=== PATIENT | male | born 1945 | race Caucasian/White ===

== ENCOUNTER 2024-07-31 07:22 | Emergency (ER) | payer MEDICARE, SELFPAY ==
[2024-07-31 07:29] VITALS: BP 176/78; PULSE 71; RESP 18; TEMP 36.6; O2SAT 95; BMI 28.5
[2024-07-31 07:33] VITALS: BP 176/78; PULSE 71; RESP 18; TEMP 36.6; O2SAT 95
--- NOTE | 2024-07-31 07:40 | XRR_ITS ---
PROCEDURE INFORMATION: Exam: XR Chest Exam date and time: 07/31/2024 7:46 AM Age: 78 years old Clinical indication: Dyspnea and shortness of breath; Prior surgery; Surgery date: 6+ months; Surgery type: Open heart; Additional info: Cough and congestion, rhonchi TECHNIQUE: Imaging protocol: Radiologic exam of the chest. Views: 2 views. COMPARISON: No relevant prior studies available. FINDINGS: Lungs: Pleural-parenchymal density in right lower lateral chest likely round atelectasis. Emphysematous changes. Pleural spaces: Right lower pleural-parenchymal density and pleural thickening. Small pleural effusion cannot be excluded. No pneumothorax. Heart/Mediastinum: Cardiomegaly. 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 Bones/joints: Median sternotomy. XR/XR chest 2V* [id number] IMPRESSION: Likely chronic round atelectasis and pleural-parenchymal changes in right lower lateral chest. Recommend follow-up.
--- NOTE | 2024-07-31 07:41 | ED_ITS ---
HPI - URI/Sore Throat General: Chief Complaint: Upper Respiratory Infection Stated Complaint: Congestion, Cough Time Seen by Provider: 07/31/24 07:32 Source: patient Mode of arrival: ambulatory Limitations: no limitations History of Present Illness: This patient presents to the emergency department because of cough and congestion for approximately last 4 to 5 days. He states that he is having nonproductive cough which wakes him at night. Uncertain if he has had any wheezing or not. He is uncertain if he has had fevers does not have a thermometer. He works for [employer] and is currently visiting this location on assignment. He states a coworker had some cough congestion a few days ago but he is unclear if how he is doing at this time. He denies any body aches. He states she has had decreased appetite but is no nausea or vomiting or diarrhea. No abdominal pain skin rashes etc. He is an ex-smoker but does admit to me yesterday he smoked a couple cigarettes when he drank a glass of wine. He denies any known coronary artery disease or chronic lung disease. He has had flu vaccine and has previously had COVID-19. MD elicited complaint: cough Consistency: intermittent Exacerbating factors: nothing Context: sick contacts and recent travel Associated symptoms: Reports congestion, cough and nasal congestion; Deny abdominal pain, chills, chest pain, diarrhea, fever(s), headache(s), nausea or vomiting Related Data Previous Rx's Medication Instructions Recorded albuterol sulfate 90 mcg/actuation 2 inh inhalation Q6H PRN shortness 07/31/24 aerosol inhaler of breath or wheezing #6.7 grams doxycycline hyclate 100 mg capsule 100 mg PO BID 7 days #14 caps 07/31/24 Allergies Allergy/AdvReac Type Severity Reaction Status Date / Time simvastatin Allergy ADR-Cough Verified 07/31/24 07:31 Review of Systems Const: Denies: fever(s), chills or body aches ENMT: Reports: nasal congestion; Denies: throat pain or odynophagia Card: Denies: chest pain, palpitations or orthopnea Resp: Reports: non-productive cough; Denies: dyspnea or hemoptysis GI: Denies: abdominal pain, nausea, vomiting or diarrhea : Denies: flank pain, difficulty urinating or dysuria Musc: Denies: neck pain, back pain, extremity pain or extremity swelling Skin/Breast: Denies: rash Neuro: Denies: headache(s), numbness in extremities or weakness in extremities Conner/Lymph: Denies: easy bruising or easy bleeding Physical Exam Narrative: EXAM NARRATIVE: He is alert having occasional episodes of coughing during the interview. Speaks in goal-directed sentences without any dyspnea. Const: COMMON NORMALS: no acute distress, average body habitus, patient oriented x3 and alert GENERAL APPEARANCE: cooperative and comfortable HENMT: COMMON NORMALS: normocephalic, Normal nasal mucous membranes and turbinates present, moist oral mucous membranes and oropharynx normal HEAD & SCALP: normocephalic FACE & SINUS: normal facial exam NOSE: Normal nasal mucous membranes and turbinates present Eye: COMMON NORMALS: Equal, round and reactive pupils present, EOMs intact bilaterally and conjunctivae normal CONJUNCTIVA: Yes conjunctivae normal PUPIL: Yes Equal, round and reactive pupils present Neck/C-Spine: COMMON NORMALS: full ROM, no lymphadenopathy, no JVD, Thyroid normal and No carotid bruits THYROID: Thyroid normal Chest: COMMONS NORMALS: normal inspection of the chest Resp: COMMON NORMALS: normal respiratory effort and No retractions EFFORT & INSPECTION: Yes able to speak in complete sentences AUSCULTATION: crackles (At bases right greater than left) Laterality: bilateral and no wheezes Cardio: COMMON NORMALS: no JVD, regular rate, regular rhythm, No murmurs present (Cardio) and Peripheral pulses 2+ throughout RATE: regular rate RHYTHM: regular rhythm PERIPHERAL PULSES: Peripheral pulses 2+ throughout GI: COMMON NORMALS: Normal to inspection, nondistended, normoactive bowel sounds present, Soft to palpation and non-tender PALPATION: Yes Soft to palpation : COMMON NORMALS: Yes no CVA tenderness BLADDER/KIDNEY EXAM: Yes no CVA tenderness Back/Pelvis: COMMON NORMALS: no CVA tenderness, thoracic and lumbar spine normal to inspection, no thoracic nor lumbar tenderness and thoraco-lumbar ROM normal Extremity: COMMON NORMALS: normal to inspection, full ROM, no calf tenderness and no pedal edema Neuro: COMMON NORMALS: patient oriented x3, moves all extremities, no focal motor deficits and no sensory deficits noted SENSORIUM/ORIENTATION: Yes alert Psych: COMMON NORMALS: mental status grossly normal Skin: COMMON NORMALS: no rashes or lesions noted, no wounds and turgor normal GENERAL SKIN EXAM: no rashes or lesions noted and turgor normal Course Reevaluation(s): Reevaluation #1: Patient remained stable. Discussed chest x-ray finding combined with his clinical picture suggestive of possible mild community-acquired pneumonia amenable to outpatient treatment. Will plan on placing him on a 7-day course of doxycycline and adding a albuterol metered-dose inhaler to his therapy we discussed return precautions and home care. He voiced understanding and was appreciative of care. Time: 08:23 Vital Signs: Vital signs: Vital Signs Temperature 97.8 F 07/31/24 07:33 Pulse Rate 71 07/31/24 07:33 Respiratory Rate 18 07/31/24 07:33 Blood Pressure 176/78 07/31/24 07:33 Pulse Oximetry 95 07/31/24 07:33 Oxygen Delivery Me thod Room Air 07/31/24 07:33 MDM - URI/Sore Throat Medical Decision Making Gentleman presents as noted in the HPI. His current presenting vital signs are reassuring although he is slightly hypertensive. He does have crackles on physical examination but no other suggestions of respiratory distress has no ongoing chest pain no fevers. Will go ahead and proceed with a chest x-ray to e nsure that there is no obvious significant pathology. Chest x-ray was had findings suggestive of atelectasis versus other possible etiologies. Normal heart size no other concerning findings. Given his clinical picture is supportive of possible early community-acquired pneumonia therefore we will treat appropriately with return precautions. Lab Data I reviewed the patient's lab results. Radiology Impressions Chest X-Ray 07/31/24 07:40 IMPRESSION: Likely chronic round atelectasis and pleural-parenchymal changes in right lower lateral chest. Recommend follow-up. All radiology interpretation(s) finalized by discharge Discharge Plan Discharge Patient Disposition: Home Clinical Impression: Pneumonia Qualifiers: Pneumonia type: due to unspecified organism Laterality: unspecified laterality Lung location: unspecified part of lung Qualified Code(s): J18.9 - Pneumonia, unspecified organism Condition: Stable Prescriptions: New albuterol sulfate 90 mcg/actuation HFA aerosol inhaler 2 inh inhalation Q6H PRN (Reason: shortness of breath or wheezing) Qty: 6.7 0RF doxycycline hyclate 100 mg capsule 100 mg PO BID 7 Days Qty: 14 0RF Discharge Orders: Discharge ED (Routine); Ordered 07/31/24 Ordered By: Liban Wilson Discharge Diet: Usual diet Discharge Activity: Increase activity as tolerated Patient Instructions: Opioid Safety, Pain Management Activity Restrictions/Additional Instructions: As we discussed your chest x-ray as well as your current clinical picture suggest a infection in your lungs. We have elected to start you on an antibiotic to take twice daily for the next 7 days to help treat that infection as well as a inhaler to help with coughing and wheezing. It is important you continue to eat your normal diet and drink at least 6 to 8 glasses of water daily. If your symptoms do not continue to improve in the next 5 to 7 days or worsen at any time or other new or concerning symptoms develop return to this or the nearest emergency department for reevaluated. You do have a mild elevation in your systolic blood pressure which should be followed up with your regular physician. Coding Level of Care Code ED Recruiting Administrator for Drake Hastings
[2024-07-31 08:41] VITALS: PULSE 71; RESP 18; O2SAT 95
[2024-07-31] MEDS: albuterol 8 gm MDI 2 PUFF INHALATION (08:41)
[2024-07-31] MEDS: doxycycline 100 mg Tablet PO (08:46)
[2024-07-31 08:52] VITALS: BP 144/73; PULSE 86; RESP 17; O2SAT 96
== END 2024-07-31 08:53 | disposition home or self-care (01) ==
PROVIDERS: Emergency Provider Emergency Medicine
DX: J18.9 Pneumonia, unspecified organism (principal)
CPT/HCPCS: 71046; 94640; 99283; J3535

== ENCOUNTER 2024-08-01 08:36 | Emergency (ER) | payer MEDICARE, SELFPAY ==
[2024-08-01 08:44] VITALS: BP 158/87; PULSE 92; RESP 18; TEMP 36.6; O2SAT 91; BMI 28.3
--- NOTE | 2024-08-01 08:48 | ECG_ITS ---
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 Measurements Intervals [place] Rate: 78 P: 17 [place]: 165 QRS: -89 QRSD: 161 T: -12 QT: 404 QTc: 462 Interpretive Statements SINUS RHYTHM POSSIBLE LEFT ATRIAL ENLARGEMENT [-0.1mV P-WAVE IN V1/V2] RIGHT BUNDLE BRANCH BLOCK [120+ ms QRS DURATION, UPRIGHT V1, 40+ ms S IN I/aVL/V4/V5/V6] LEFT ANTERIOR FASCICULAR BLOCK [QRS AXIS <= -45, QR IN I, RS IN II] INFERIOR MYOCARDIAL INFARCTION , PROBABLY OLD [40+ ms Q WAVE AND/OR ST/T ABNORMALITY IN II/aVF] No previous ECG available for comparison Electronically Signed On 08-06-2024 16:05:01 VEGETABLE TESTER by Breana Kelly M.D. [email or web address]
--- NOTE | 2024-08-01 08:58 | XRR_ITS ---
PROCEDURE INFORMATION: Exam: XR Chest Exam date and time: 08/01/2024 9:12 AM Age: 78 years old Clinical indication: Cough and dyspnea; Additional info: Dyspnea/cough TECHNIQUE: Imaging protocol: Radiologic exam of the chest. Views: 1 view. COMPARISON: CR (CHEST, ) 07/31/2024 7:46 AM FINDINGS: Lungs: There is unchanged blunting of the right costophrenic sulcus tracking along the lower convexity with adjacent atelectasis or fibrosis. The left lung is clear. Pleural spaces: No pneumothorax. Heart/Mediastinum: Unremarkable. No cardiomegaly. Bones/joints: The patient is post sternotomy. XR/XR chest 1V portable [id number] IMPRESSION: No significant change from the prior study.
[2024-08-01] MEDS: aspirin 81 mg Chew Tablet 324 MG PO (09:23)
[2024-08-01 09:28] VITALS: BP 158/87; PULSE 73; RESP 16; O2SAT 95
[2024-08-01 09:28] LABS: Basophils % 0.3 %; Eosinophils % 0.3 %; Hematocrit 43.1 % (37-53); Lymphocytes # 0.8 10^3/uL (0.8-4.8); Lymphocytes % 10.4 %; Mean Corpuscular HGB Conc 33.9 g/dL (30-55); Mean Corpuscular Hemoglobin 31.9 pg (27-33); Mean Corpuscular Volume 94.3 fl (82-101); Mean Platelet Volume 10.1 fL (7.4-10.4); Monocytes # 0.5 10^3/uL (0.2-0.9); Neutrophils # 6.59 10^3/uL (1.8-7.7); Neutrophils % 82.7 %; Nucleated Red Blood Cells % 0 %; Platelet Count 141 10^3/cmm (157-399); Red Blood Count 4.57 10^6/uL (3.85-5.65); Red Cell Distribution Width 13.6 % (12.1-15.1); White Blood Count 7.96 10^3/uL (3.29-11.43)
[2024-08-01 09:43] LABS: Alanine Aminotransferase 11 U/L (0-41); Albumin Level 3.8 g/dL (3.5-5.2); Alkaline Phosphatase 82 U/L (40-130); Aspartate Amino Transferase 23 U/L (0-40); Blood Urea Nitrogen 8 mg/dL (8-23); Calcium 8.3 mg/dL (8.5-10.5); Carbon Dioxide 25 mmol/L (22-29); Chloride 104 mmol/L (98-107); Creatinine Clr Calc Pharmacy 89.4671; Globulin 2.8 g/dL (1.3-4.6); Glucose 173 mg/dL (65-115); Osmolality Calculated 290 mOsm/kg (285-295); Sodium 139 mmol/L (136-145); Total Bilirubin 0.4 mg/dL (0.15-1.2); Total Protein 6.6 g/dL (6.6-8.7)
--- NOTE | 2024-08-01 09:43 | ED_ITS ---
HPI - SOB/Dyspnea 2 General: Chief Complaint: Shortness of Breath/Dyspnea Stated Complaint: sob, high hr Time Seen by Provider: 08/01/24 08:50 History of Present Illness: HPI Narrative: 78-year-old male presents emergency room complaining of shortness of breath rapid heart rate. Patient had onset of nonproductive cough 6 days ago. He was seen yesterday in the emergency room with a question of right lower lobe pneumonia he was given a prescription for antibiotics and albuterol. He has not started the antibiotics but the albuterol he is noted gives him a rapid heart rate. Cough has been nonproductive. Low-grade subjective fever headaches and myalgias. Associated symptoms: Deny abdominal pain, chest pain or fever(s) Related Data Home Medications Medication Instructions Recorded Confirmed bimatoprost 0.01 % eye drops 1 drp ophthalmic (eye) BEDTIME 08/01/24 08/01/24 (Lumigan) clindamycin phosphate 1 % topical 1 applic topical QAM PRN Rash 08/01/24 08/01/24 solution dorzolamide 22.3 mg-timolol 6.8 1 drp ophthalmic (eye) TID 08/01/24 08/01/24 mg/mL eye drops fluocinonide 0.05 % topical See Rx Instructions .Route .COMPLEX 08/01/24 08/01/24 solution ketoconazole 2 % shampoo See Rx Instructions .Route .COMPLEX 08/01/24 08/01/24 losartan 50 mg tablet 50 mg PO DAILY 08/01/24 08/01/24 netarsudil 0.02 % eye drops 1 drp ophthalmic (eye) BEDTIME 08/01/24 08/01/24 (Rhopressa) temazepam 30 mg capsule 30 mg PO BEDTIME PRN Sleep 08/01/24 08/01/24 Previous Rx's Medication Instructions Recorded albuterol sulfate 90 mcg/actuation 2 inh inhalation Q6H PRN shortness 07/31/24 aerosol inhaler of breath or wheezing #6.7 grams doxycycline hyclate 100 mg capsule 100 mg PO BID 7 days #14 caps 07/31/24 Allergies Allergy/AdvReac Type Severity Reaction Status Date / Time simvastatin Allergy ADR-Cough Verified 07/31/24 07:31 Review of Systems 2 Const: Denies: fever(s) or chills Card: Denies: chest pain Resp: Reports: dyspnea and non-productive cough GI: Denies: abdominal pain : Denies: dysuria, urinary frequency or urinary urgency Musc: Denies: neck pain or back pain Skin/Breast: Denies: rash Physical Exam 2 Const: GENERAL APPEARANCE: cooperative ORIENTATION/CONSCIOUSNESS: Yes awake, Yes oriented to person, Yes oriented to place and Yes oriented to time HENMT: COMMON NORMALS: normocephalic, atraumatic and hearing grossly normal bilaterally HEAD & SCALP: normocephalic and atraumatic Resp: COMMON NORMALS: normal respiratory effort, No retractions and No use of accessory muscles AUSCULTATION: crackles Laterality: right (Base) and posterior and wheezes Cardio: COMMON NORMALS: regular rate, regular rhythm and No murmurs present (Cardio) RATE: regular rate RHYTHM: regular rhythm GI: COMMON NORMALS: Soft to palpation and No hepatosplenomegaly present A USCULTATION: Yes normoactive bowel sounds PALPATION: Yes Soft to palpation, No Tenderness to palpation present (GI), No Guarding due to palpation present (GI) and Yes No hepatosplenomegaly present Extremity: COMMON NORMALS: normal to inspection, capillary refill normal, no clubbing, cyanosis or edema, no calf tenderness and no pedal edema Neuro: SENSORIUM/ORIENTATION: Yes oriented to person, Yes oriented to place and Yes oriented to time Skin: COMMON NORMALS: no rashes or lesions noted GENERAL SKIN EXAM: no rashes or lesions noted Course 2 Vital Signs: Vital signs: Vital Signs Temperature 97.8 F 08/01/24 08:44 Pulse Rate 77 08/01/24 11:59 Respiratory Rate 16 08/01/24 09:28 Blood Pressure 125/69 08/01/24 11:59 Pulse Oximetry 94 08/01/24 11:59 Oxygen Delivery Me thod Room Air 08/01/24 11:22 MDM - SOB/Dyspnea Medical Decision Making COVID-positive. Chest x-ray early changes are likely from COVID sats are good. He is outside the window of opportunity to treat with Paxlovid. He has no leukocytosis at this point and probably forego the antibiotics at [place] without much help. He does not require steroids or oxygen supplementation he could benefit from albuterol discussed with him potential side effects of albuterol did encourage him to consider using from time to time return if has any worsening or changes symptoms Medical Records I reviewed the patient's medical records. Lab Data I reviewed the patient's lab results. 08/01/24 09:12 08/01/24 09:12 Labs/Radiology: Radiology Impressions Chest X-Ray 08/01/24 08:58 IMPRESSION: No significant change from the prior study. Laboratory Results WBC 7.96 10^3/uL (3.29-11.43) 08/01/24 09:12 RBC 4.57 10^6/uL (3.85-5.65) 08/01/24 09:12 Hgb 14.60 g/dL (11.27-16.99) 08/01/24 09:12 Hct 43.1 % (37-53) 08/01/24 09:12 MCV 94.3 fl (82-101) 08/01/24 09:12 MCH 31.9 pg (27-33) 08/01/24 09:12 MCHC 33.9 g/dL (30-55) 08/01/24 09:12 RDW 13.6 % (12.1-15.1) 08/01/24 09:12 Plt Count 141 10^3/cmm (157-399) L 08/01/24 09:12 MPV 10.1 fL (7.4-10.4) 08/01/24 09:12 Neut % (Auto) 82.7 % 08/01/24 09:12 Lymph % (Auto) 10.4 % 08/01/24 09:12 [place] % (Auto) 6.0 % 08/01/24 09:12 Eos % (Auto) 0.3 % 08/01/24 09:12 Baso % (Auto) 0.3 % 08/01/24 09:12 Neut # (Auto) 6.59 10^3/uL (1.8-7.7) 08/01/24 09:12 Lymph # (Auto) 0.8 10^3/uL (0.8-4.8) 08/01/24 09:12 [place] # (Auto) 0.5 10^3/uL (0.2-0.9) 08/01/24 09:12 Eos # (Auto) 0.0 10^3/uL (0.0-0.8) 08/01/24 09:12 Baso # (Auto) 0.0 10^3/uL (0.0-0.1) 08/01/24 09:12 Nucleated RBC % (auto) 0 % 08/01/24 09:12 Nucleated RBCs # 0.0 /100WBC 08/01/24 09:12 Sodium 139 mmol/L (136-145) 08/01/24 09:12 Potassium 4.0 mmol/L (3.5-5.1) 08/01/24 09:12 Chloride 104 mmol/L (98-107) 08/01/24 09:12 Carbon Dioxide 25 mmol/L (22-29) 08/01/24 09:12 Anion Gap 14.0 (5-19) 08/01/24 09:12 BUN 8 mg/dL (8-23) 08/01/24 09:12 Creatinine 0.6 mg/dL (0.7-1.2) L 08/01/24 09:12 GFR Calculation Not Reportable 08/01/24 09:12 Glucose 173 mg/dL (65-115) H 08/01/24 09:12 Calculated Osmolality 290 mOsm/kg (285-295) 08/01/24 09:12 Calcium 8.3 mg/dL (8.5-10.5) L 08/01/24 09:12 Total Bilirubin 0.4 mg/dL (0.15-1.2) 08/01/24 09:12 AST 23 U/L (0-40) 08/01/24 09:12 ALT 11 U/L (0-41) 08/01/24 09:12 Alkaline Phosphatase 82 U/L (40-130) 08/01/24 09:12 Troponin T Baseline 13 ng/L (0-15) 08/01/24 09:12 Troponin T 120 Minute 15.55 ng/L (0-15) H 08/01/24 11:16 Delta Troponin T 2.55 ABS# (0-10) 08/01/24 11:16 Total Protein 6.6 g/dL (6.6-8.7) 08/01/24 09:12 Albumin 3.8 g/dL (3.5-5.2) 08/01/24 09:12 Globulin 2.8 g/dL (1.3-4.6) 08/01/24 09:12 Coronavirus (PCR) Positive (Negative) A 08/01/24 09:35 Influenza A (PCR) Negative (Negative) 08/01/24 09:35 Influenza Type B (PCR) Negative (Negative) 08/01/24 09:35 RSV (PCR) Negative (Negative) 08/01/24 09:35 All radiology interpretation(s) finalized by discharge Discharge Plan Discharge Patient Disposition: Home Clinical Impression: COVID-19 Condition: Stable Prescriptions: No Action doxycycline hyclate 100 mg capsule 100 mg PO BID 7 Days Qty: 14 0RF albuterol sulfate 90 mcg/actuation HFA aerosol inhaler 2 inh inhalation Q6H PRN (Reason: shortness of breath or wheezing) Qty: 6.7 0RF losartan 50 mg tablet 50 mg PO DAILY ketoconazole 2 % shampoo See Rx Instructions .ROUTE .COMPLEX Rx Instructions: APPLY TO SCALP, LET SIT FOR 5-10 MINUTES THEN RINSE USE WEEKLY temazepam 30 mg capsule 30 mg PO BEDTIME PRN (Reason: Sleep) dorzolamide-timolol 22.3-6.8 mg/mL drops 1 drp ophthalmic (eye) TID fluocinonide 0.05 % solution See Rx Instructions .ROUTE .COMPLEX Rx Instructions: APPLY 10-12 DROPS TO SCALP ONCE A DAY clindamycin phosphate 1 % solution 1 applic TOPICAL QAM PRN (Reason: Rash) Lumigan 0.01 % drops 1 drp ophthalmic (eye) BEDTIME Rhopressa 0.02 % drops 1 drp ophthalmic (eye) BEDTIME Discharge Orders: Discharge ED (Routine); Ordered 08/01/24 Ordered By: Damian Julian Discharge Diet: Usual diet Discharge Activity: Increase activity as tolerated Patient Instructions: COVID-19 (Coronavirus Disease 2019) (ED), Opioid Safety, Pain Management Activity Restrictions/Additional Instructions: Thank you for choosing [facility] for your healthcare needs today. It is very important that you follow up as instructed or that you return to the Emergency Department should you have concerns or if your condition changes or worsens in any way. Coding Level of Care Code ED Shaving Machine Operator for Drake Hastings
--- NOTE | 2024-08-01 09:56 | PHA.FALL ---
A Pharmacy Consult Was Conducted For Madhu Payne Due To: Gutierrez Fall Scale Risk Level: No Fall Risk On 08/01/24 08:44 And A Medication Fall Risk Score Greater Than 10. The Recommendations Are As Follows:
--- NOTE | 2024-08-01 09:56 | PC.PHAR ---
Pt has Rosuvastatin 5mg daily last fill 07/17/24-pt states stopped taking this due to cough.
[2024-08-01 10:06] LABS: Troponin(5th) Baseline 13 ng/L (0-15)
[2024-08-01 10:22] VITALS: BP 137/60; PULSE 64; O2SAT 95
[2024-08-01 11:05] LABS: Influenza A NEGATIVE (Negative); Influenza B NEGATIVE (Negative); Respiratory Syncytial Virus Ce NEGATIVE (Negative)
--- NOTE | 2024-08-01 11:17 | ECG_ITS ---
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
[2024-08-01 11:22] VITALS: BP 126/72; PULSE 66; O2SAT 93
[2024-08-01 11:23] LABS: Covid PCR Positive (Negative)
[2024-08-01 11:46] LABS: Troponin 5 2HR 15.55 ng/L (0-15); Troponin 5 2HR Delta 2.55 ABS# (0-10)
[2024-08-01 11:59] VITALS: BP 125/69; PULSE 77; O2SAT 94
== END 2024-08-01 12:02 | disposition home or self-care (01) ==
PROVIDERS: Emergency Provider Family Medicine
DX: U07.1 COVID-19 (principal); Z11.52 Encounter for screening for COVID-19
CPT/HCPCS: 0241U; 36415; 71045; 80053; 84484; 85025; 87040; 93005; 99285

== ENCOUNTER 2024-08-05 09:05 | Emergency (ER) | payer MEDICARE, SELFPAY ==
--- NOTE | 2024-08-05 09:20 | XR_ITS ---
WS: [id number] Portable AP upright chest, 08/05/2024 Clinical Data: sob Comparison: Portable chest, 08/01/2024 Findings: No nodules, masses or effusions are seen. The heart is normal. The pulmonary vascularity is not increased. No pneumonia or pneumothorax is seen. There is flattening of the right diaphragm with pleural thickening of the lower right pleural space unchanged. There are mediastinal sutures. The ao rtic arch and descending thoracic aorta show tortuosity. XR/XR chest 1V portable [id number] Impression: No change from previous chest x-ray.
[2024-08-05 09:35] VITALS: BP 138/76; PULSE 68; RESP 17; TEMP 36.7; O2SAT 98; BMI 28.5
--- NOTE | 2024-08-05 11:05 | W.ED.URI ---
HPI - URI/Sore Throat General: Chief Complaint: Upper Respiratory Infection Stated Complaint: Covid pos on Mond Time Seen by Provider: 08/05/24 09:56 Source: patient Mode of arrival: ambulatory Limitations: no limitations History of Present Illness: Patient is a 78-year-old male here with complaints of a cough. He states he has had cough over the past 10 days or so. He was initially seen here in the emergency department on 07/31. He was seen the day after as well. On patient's visit on 08/01 he did test positive for Coronavirus. He was outside the window for any benefit of Paxlovid. Patient arrives in no acute distress. His vital signs are stable. His main complaint is the cough that is keeping him up at night. He has been doing Vicks vapor rub. He has not tried any [id number] therapies. MD elicited complaint: cough Pertinent past history: other (known + COVID) Onset (ago): day(s) Consistency: constant Severity: moderate Description of mucous: clear Able to tolerate fluids by mouth: Yes Exacerbating factors: nothing Relieving factors: nothing Associated symptoms: Deny chills, chest pain, diarrhea, fever(s), headache(s) or vomiting Related Data Home Medications Medication Instructions Recorded Confirmed bimatoprost 0.01 % eye drops 1 drp ophthalmic (eye) BEDTIME 08/01/24 08/01/24 (Lumigan) clindamycin phosphate 1 % topical 1 applic topical QAM PRN Rash 08/01/24 08/01/24 solution dorzolamide 22.3 mg-timolol 6.8 1 drp ophthalmic (eye) TID 08/01/24 08/01/24 mg/mL eye drops fluocinonide 0.05 % topical See Rx Instructions .Route .COMPLEX 08/01/24 08/01/24 solution ketoconazole 2 % shampoo See Rx Instructions .Route .COMPLEX 08/01/24 08/01/24 losartan 50 mg tablet 50 mg PO DAILY 08/01/24 08/01/24 netarsudil 0.02 % eye drops 1 drp ophthalmic (eye) BEDTIME 08/01/24 08/01/24 (Rhopressa) temazepam 30 mg capsule 30 mg PO BEDTIME PRN Sleep 08/01/24 08/01/24 Previous Rx's Medication Instructions Recorded albuterol sulfate 90 mcg/actuation 2 inh inhalation Q6H PRN shortness 07/31/24 aerosol inhaler of breath or wheezing #6.7 grams doxycycline hyclate 100 mg capsule 100 mg PO BID 7 days #14 caps 07/31/24 benzonatate 100 mg capsule 100 mg PO TID PRN cough #14 caps 08/05/24 Allergies Allergy/AdvReac Type Severity Reaction Status Date / Time simvastatin Allergy ADR-Cough Verified 08/05/24 09:41 Review of Systems Const: Denies: fever(s), chills, body aches, fatigue or malaise Card: Denies: chest pain Resp: Reports: non-productive cough; Denies: dyspnea, wheezing or hemoptysis GI: Denies: vomiting or diarrhea Musc: Denies: back pain Neuro: Denies: headache(s) or dizziness Physical Exam Const: COMMON NORMALS: no acute distress, average body habitus, patient oriented x3, no limitations, healthy appearing, alert and well nourished GENERAL APPEARANCE: cooperative ORIENTATION/CONSCIOUSNESS: Yes awake, Yes oriented to person, Yes oriented to place and Yes oriented to time Resp: COMMON NORMALS: normal respiratory effort and clear to auscultation bilaterally AUSCULTATION: clear to auscultation bilaterally Cardio: COMMON NORMALS: regular rate and regular rhythm RATE: regular rate RHYTHM: regular rhythm Neuro: COMMON NORMALS: patient oriented x3 SENSORIUM/ORIENTATION: Yes alert, Yes oriented to person, Yes oriented to place and Yes oriented to time Course Vital Signs: Vital signs: Vital Signs Temperature 98.1 F 08/05/24 09:35 Pulse Rate 57 L 08/05/24 11:34 Respiratory Rate 21 H 08/05/24 11:34 Blood Pressure 148/73 08/05/24 11:34 Pulse Oximetry 97 08/05/24 11:34 Oxygen Delivery Me thod Room Air 08/05/24 11:34 MDM - URI/Sore Throat Medical Decision Making Patient appears no acute distress. His vital signs are stable. He is satting 98% on room air. His only complaint at this time is a nonproductive cough. CXRs from his 2 previous visits were reviewed without change today. He is known COVID +. Discussed how cough associated with COVID can last for weeks. He is requesting something to help. Will place placed on [employer]. Other conservative therapies were discussed. Return to ED precautions given. Differential Diagnosis Likely upper respiratory infection Medical Records I reviewed the patient's medical records. Lab Data Radiology Impressions Chest X-Ray 08/05/24 09:20 Impression: No change from previous chest x-ray. All radiology interpretation(s) finalized by discharge Discharge Plan Discharge Patient Disposition: Home Clinical Impression: COVID-19 Condition: Stable Prescriptions: New benzonatate 100 mg capsule 100 mg PO TID PRN (Reason: cough) Qty: 14 0RF Rx Instructions: Can take 1-2 tabs up to TID. Max 600mg/day. No Action doxycycline hyclate 100 mg capsule 100 mg PO BID 7 Days Qty: 14 0RF albuterol sulfate 90 mcg/actuation HFA aerosol inhaler 2 inh inhalation Q6H PRN (Reason: shortness of breath or wheezing) Qty: 6.7 0RF losartan 50 mg tablet 50 mg PO DAILY ketoconazole 2 % shampoo See Rx Instructions .ROUTE .COMPLEX Rx Instructions: APPLY TO SCALP, LET SIT FOR 5-10 MINUTES THEN RINSE USE WEEKLY temazepam 30 mg capsule 30 mg PO BEDTIME PRN (Reason: Sleep) dorzolamide-timolol 22.3-6.8 mg/mL drops 1 drp ophthalmic (eye) TID fluocinonide 0.05 % solution See Rx Instructions .ROUTE .COMPLEX Rx Instructions: APPLY 10-12 DROPS TO SCALP ONCE A DAY clindamycin phosphate 1 % solution 1 applic TOPICAL QAM PRN (Reason: Rash) Lumigan 0.01 % drops 1 drp ophthalmic (eye) BEDTIME Rhopressa 0.02 % drops 1 drp ophthalmic (eye) BEDTIME Discharge Orders: Discharge ED (Routine); Ordered 08/05/24 Ordered By: Tracy Negron Patient Instructions: COVID-19 (Coronavirus Disease 2019) (ED) Activity Restrictions/Additional Instructions: As we discussed, you did test positive for COVID a few days ago. There is no evidence for pneumonia on your chest x-ray. The cough associated with COVID can last for weeks. Your vital signs are stable. We will place you on cough medication as you have stated this is your most bothersome symptom. Other conservative therapies include Vicks vapor rub, humidifier, [id number]-[id number] dextromethorphan. You may return to the emergency department for severe shortness of breath, difficulty breathing, chest pain, generally feeling worse or unwell, or any other concerns you may have. I hope you begin to feel better soon. 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
[2024-08-05 11:34] VITALS: BP 148/73; PULSE 57; RESP 21; O2SAT 97
[2024-08-05 12:08] VITALS: BP 137/71; PULSE 61; O2SAT 97
[2024-08-05 13:40] LABS: Adenovirus Not Detected (NOT DETECT); Chlamydia Pneumoniae Not Detected (NOT DETECT); Coronavirus 229E,HKU1,NL63,OC4 Not Detected (NOT DETECT); Human Metapneumovirus Not Detected (NOT DETECT); Human Rhinovirus/Enterovirus Not Detected (NOT DETECT); Influenza A Not Detected (NOT DETECT); Influenza A H1 Not Detected (NOT DETECT); Influenza A H1-2009 Not Detected (NOT DETECT); Influenza A H3 Not Detected (NOT DETECT); Influenza B Not Detected (NOT DETECT); Mycoplasma Pneumoniae Not Detected (NOT DETECT); Parainfluenza Virus Type 1 Not Detected (NOT DETECT); Parainfluenza Virus Type 2 Not Detected (NOT DETECT); Parainfluenza Virus Type 3 Not Detected (NOT DETECT); Parainfluenza Virus Type 4 Not Detected (NOT DETECT); Respiratory Syncytial Virus A Not Detected (NOT DETECT); Respiratory Syncytial Virus B Not Detected (NOT DETECT)
[2024-08-05 13:43] LABS: SARS-COV-2 Detected (NOT DETECT)
== END 2024-08-05 12:10 | disposition home or self-care (01) ==
PROVIDERS: Emergency Provider Physician Assistant
DX: U07.1 COVID-19 (principal)
CPT/HCPCS: 71045; 87486; 87581; 87633; 99284

== ENCOUNTER 2024-08-08 08:09 | Emergency (ER) | payer MEDICARE, SELFPAY ==
[2024-08-08 08:27] VITALS: BP 150/78; PULSE 66; RESP 16; TEMP 36.7; O2SAT 98; BMI 27.5
--- NOTE | 2024-08-08 09:18 | XR_ITS ---
WS: [id number] Exam: XR chest 1V portable [id number] Date/Time of Exam: 08/08/2024 9:47 AM Reason For Exam: dyspnea/cough Comparison 08/05/2024. Lungs are hyperinflated and clear. Chronic pulmonary parenchymal and pleural changes seen in the RIGH T lower lung zone. Mild cardiac enlargement unchanged. The lungs are fully inflated. The mediastinum is normal in contour. Signs of previous median sternotomy. Bony structures are intact. Tortuosity of the thoracic aorta. XR/XR chest 1V portable [id number] IMPRESSION: 1. Chronic pulmonary parenchymal and pleural changes on the RIGHT. Mild cardiac enlargement unchanged. 2. Probable COPD. No acute process.
--- NOTE | 2024-08-08 09:22 | ED_ITS ---
HPI - COVID 2 General: Chief Complaint: COVID symptoms Stated Complaint: covid +, sob Time Seen by Provider: 08/08/24 09:18 History of Present Illness: 78-year-old male who is his fourth visit to the emergency room after having COVID. He is complaining of a cough. He is not had any chest pain. He is no longer running a fever. The cough is persistent. On the advice of a family members a medical professional he is demanding steroids at this time. No hemoptysis. COVID 19 common symptoms: positive non-productive cough; negative fever(s), chills or dyspnea COVID 19 other sytmptoms: negative chest pain COVID Results: 2 SARS-CoV-2 (PCR) Detected (NOT DETECT) A 08/05/24 11:35 Coronavirus Type 229E (PCR) Not detected (NOT DETECT) 08/05/24 11:35 Coronavirus (PCR) Positive (Negative) A 08/08/24 09:54 Related Data Home Medications Medication Instructions Recorded Confirmed bimatoprost 0.01 % eye drops 1 drp ophthalmic (eye) BEDTIME 08/01/24 08/08/24 (Lumigan) clindamycin phosphate 1 % topical 1 applic topical QAM PRN Rash 08/01/24 08/08/24 solution dorzolamide 22.3 mg-timolol 6.8 1 drp ophthalmic (eye) TID 08/01/24 08/08/24 mg/mL eye drops fluocinonide 0.05 % topical See Rx Instructions .Route .COMPLEX 08/01/24 08/08/24 solution ketoconazole 2 % shampoo See Rx Instructions .Route .COMPLEX 08/01/24 08/08/24 losartan 50 mg tablet 50 mg PO DAILY 08/01/24 08/08/24 netarsudil 0.02 % eye drops 1 drp ophthalmic (eye) BEDTIME 08/01/24 08/08/24 (Rhopressa) temazepam 30 mg capsule 30 mg PO BEDTIME PRN Sleep 08/01/24 08/08/24 benzonatate 100 mg capsule See Rx Instructions .Route 08/08/24 08/08/24 .COMPLEX PRN cough Previous Rx's Medication Instructions Recorded albuterol sulfate 90 mcg/actuation 2 inh inhalation Q6H PRN shortness 11/10/24 aerosol inhaler of breath or wheezing #6.7 grams methylprednisolone 4 mg tablets in See Rx Instructions PO .COMPLEX 08/08/24 a dose pack (Medrol (Daryn)) #21 ea Allergies Allergy/AdvReac Type Severity Reaction Status Date / Time simvastatin Allergy ADR-Cough Verified 08/05/24 09:41 Review of Systems 2 Const: Denies: fever(s) or chills Card: Denies: chest pain Resp: Reports: non-productive cough and chest congestion; Denies: dyspnea GI: Denies: abdominal pain : Denies: dysuria, urinary frequency or urinary urgency Musc: Denies: neck pain or back pain Skin/Breast: Denies: rash Physical Exam 2 Const: COMMON NORMALS: no acute distress GENERAL APPEARANCE: cooperative and comfortable ORIENTATION/CONSCIOUSNESS: Yes awake, Yes oriented to person, Yes oriented to place and Yes oriented to time HENMT: COMMON NORMALS: normocephalic, atraumatic and hearing grossly normal bilaterally HEAD & SCALP: normocephalic and atraumatic Resp: COMMON NORMALS: normal respiratory effort, No retractions, No use of accessory muscles and clear to auscultation bilaterally AUSCULTATION: clear to auscultation bilaterally Cardio: COMMON NORMALS: regular rate, regular rhythm and No murmurs present (Cardio) RATE: regular rate RHYTHM: regular rhythm GI: COMMON NORMALS: Soft to palpation and No hepatosplenomegaly present A USCULTATION: Yes normoactive bowel sounds PALPATION: Yes Soft to palpation, No Tenderness to palpation present (GI), No Guarding due to palpation present (GI) and Yes No hepatosplenomegaly present Extremity: COMMON NORMALS: normal to inspection, capillary refill normal, no clubbing, cyanosis or edema, no calf tenderness and no pedal edema Neuro: SENSORIUM/ORIENTATION: Yes oriented to person, Yes oriented to place and Yes oriented to time Skin: COMMON NORMALS: no rashes or lesions noted GENERAL SKIN EXAM: no rashes or lesions noted Course 2 Vital Signs: Vital signs: Vital Signs Temperature 98.1 F 08/08/24 08:27 Pulse Rate 53 L 08/08/24 11:12 Respiratory Rate 16 08/08/24 08:27 Blood Pressure 121/89 08/08/24 11:12 Pulse Oximetry 100 08/08/24 11:12 Oxygen Delivery Me thod Room Air 08/08/24 11:11 [facility] - COVID Medical Decision Making Patient's vital signs are stable. He is actually bradycardic's oxygen sats 100% on room air and he is afebrile. Chest x-ray does not show any acute changes remainder of labs otherwise negative. Discussion with patient we did give him Medrol Dosepak. Advised him that typically we do not do this is only being done because of his insistence. Medical Records I reviewed the patient's medical records. Lab Data I reviewed the patient's lab results. 08/08/24 09:54 08/08/24 09:54 Radiology Impressions Chest X-Ray 08/08/24 09:18 IMPRESSION: 1. Chronic pulmonary parenchymal and pleural changes on the RIGHT. Mild cardiac enlargement unchanged. 2. Probable COPD. No acute process. Laboratory Results WBC 5.02 10^3/uL (3.29-11.43) 08/08/24 09:54 RBC 4.34 10^6/uL (3.85-5.65) 08/08/24 09:54 Hgb 13.60 g/dL (11.27-16.99) 08/08/24 09:54 Hct 40.6 % (37-53) 08/08/24 09:54 MCV 93.5 fl (82-101) 08/08/24 09:54 MCH 31.3 pg (27-33) 08/08/24 09:54 MCHC 33.5 g/dL (30-55) 08/08/24 09:54 RDW 12.9 % (12.1-15.1) 08/08/24 09:54 Plt Count 208 10^3/cmm (157-399) 08/08/24 09:54 MPV 10.0 fL (7.4-10.4) 08/08/24 09:54 Neut % (Auto) 66.1 % 08/08/24 09:54 Lymph % (Auto) 19.7 % 08/08/24 09:54 Gilliam % (Auto) 11.0 % 08/08/24 09:54 Eos % (Auto) 2.4 % 08/08/24 09:54 Baso % (Auto) 0.4 % 08/08/24 09:54 Neut # (Auto) 3.32 10^3/uL (1.8-7.7) 08/08/24 09:54 Lymph # (Auto) 1.0 10^3/uL (0.8-4.8) 08/08/24 09:54 Gilliam # (Auto) 0.6 10^3/uL (0.2-0.9) 08/08/24 09:54 Eos # (Auto) 0.1 10^3/uL (0.0-0.8) 08/08/24 09:54 Baso # (Auto) 0.0 10^3/uL (0.0-0.1) 08/08/24 09:54 Nucleated RBC % (auto) 0 % 08/08/24 09:54 Nucleated RBCs # 0.0 /100WBC 08/08/24 09:54 Sodium 141 mmol/L (136-145) 08/08/24 09:54 Potassium 4.2 mmol/L (3.5-5.1) 08/08/24 09:54 Chloride 105 mmol/L (98-107) 08/08/24 09:54 Carbon Dioxide 27 mmol/L (22-29) 08/08/24 09:54 Anion Gap 13.2 (5-19) 08/08/24 09:54 BUN 11 mg/dL (8-23) 08/08/24 09:54 Creatinine 0.6 mg/dL (0.7-1.2) L 08/08/24 09:54 GFR Calculation Not Reportable 08/08/24 09:54 Glucose 105 mg/dL (65-115) 08/08/24 09:54 Calculated Osmolality 292 mOsm/kg (285-295) 08/08/24 09:54 Calcium 8.3 mg/dL (8.5-10.5) L 08/08/24 09:54 Total Bilirubin 0.4 mg/dL (0.15-1.2) 08/08/24 09:54 AST 21 U/L (0-40) 08/08/24 09:54 ALT 15 U/L (0-41) 08/08/24 09:54 Alkaline Phosphatase 75 U/L (40-130) 08/08/24 09:54 Total Protein 6.7 g/dL (6.6-8.7) 08/08/24 09:54 Albumin 3.7 g/dL (3.5-5.2) 08/08/24 09:54 Globulin 3.0 g/dL (1.3-4.6) 08/08/24 09:54 Coronavirus (PCR) Positive (Negative) A 08/08/24 09:54 Influenza A (PCR) Negative (Negative) 08/08/24 09:54 Influenza Type B (PCR) Negative (Negative) 08/08/24 09:54 RSV (PCR) Negative (Negative) 08/08/24 09:54 2 SARS-CoV-2 (PCR) Detected (NOT DETECT) A 08/05/24 11:35 Coronavirus Type 229E (PCR) Not detected (NOT DETECT) 08/05/24 11:35 Coronavirus (PCR) Positive (Negative) A 08/08/24 09:54 All radiology interpretation(s) finalized by discharge Discharge Plan Discharge Patient Disposition: Home Clinical Impression: COVID-19 Condition: Stable Prescriptions: New methylprednisolone [Medrol (Daryn)] 4 mg tablets,dose pack See Rx Instructions .ROUTE .COMPLEX Qty: 21 0RF Rx Instructions: orally per package directions No Action albuterol sulfate 90 mcg/actuation HFA aerosol inhaler 2 inh inhalation Q6H PRN (Reason: shortness of breath or wheezing) Qty: 6.7 0RF losartan 50 mg tablet 50 mg PO DAILY ketoconazole 2 % shampoo See Rx Instructions .ROUTE .COMPLEX Rx Instructions: APPLY TO SCALP, LET SIT FOR 5-10 MINUTES THEN RINSE USE WEEKLY temazepam 30 mg capsule 30 mg PO BEDTIME PRN (Reason: Sleep) dorzolamide-timolol 22.3-6.8 mg/mL drops 1 drp ophthalmic (eye) TID fluocinonide 0.05 % solution See Rx Instructions .ROUTE .COMPLEX Rx Instructions: APPLY 10-12 DROPS TO SCALP ONCE A DAY clindamycin phosphate 1 % solution 1 applic TOPICAL QAM PRN (Reason: Rash) Lumigan 0.01 % drops 1 drp ophthalmic (eye) BEDTIME Rhopressa 0.02 % drops 1 drp ophthalmic (eye) BEDTIME benzonatate 100 mg capsule See Rx Instructions .ROUTE .COMPLEX PRN (Reason: cough) Rx Instructions: Can take 1-2 tablets by mouth up to 3 times daily. Max 600mg/day. 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
[2024-08-08 09:57] VITALS: O2SAT 98
[2024-08-08 10:11] LABS: Basophils % 0.4 %; Eosinophils # 0.1 10^3/uL (0.0-0.8); Eosinophils % 2.4 %; Hematocrit 40.6 % (37-53); Lymphocytes % 19.7 %; Mean Corpuscular HGB Conc 33.5 g/dL (30-55); Mean Corpuscular Hemoglobin 31.3 pg (27-33); Mean Corpuscular Volume 93.5 fl (82-101); Monocytes # 0.6 10^3/uL (0.2-0.9); Neutrophils # 3.32 10^3/uL (1.8-7.7); Neutrophils % 66.1 %; Nucleated Red Blood Cells % 0 %; Platelet Count 208 10^3/cmm (157-399); Red Blood Count 4.34 10^6/uL (3.85-5.65); Red Cell Distribution Width 12.9 % (12.1-15.1); White Blood Count 5.02 10^3/uL (3.29-11.43)
[2024-08-08 10:20] LABS: Alanine Aminotransferase 15 U/L (0-41); Albumin Level 3.7 g/dL (3.5-5.2); Alkaline Phosphatase 75 U/L (40-130); Anion Gap 13.2 (5-19); Aspartate Amino Transferase 21 U/L (0-40); Blood Urea Nitrogen 11 mg/dL (8-23); Calcium 8.3 mg/dL (8.5-10.5); Carbon Dioxide 27 mmol/L (22-29); Chloride 105 mmol/L (98-107); Creatinine Clr Calc Pharmacy 88.3526; Glucose 105 mg/dL (65-115); Osmolality Calculated 292 mOsm/kg (285-295); Potassium 4.2 mmol/L (3.5-5.1); Sodium 141 mmol/L (136-145); Total Bilirubin 0.4 mg/dL (0.15-1.2); Total Protein 6.7 g/dL (6.6-8.7)
--- NOTE | 2024-08-08 10:36 | ECG_ITS ---
[facility] Test Date: 2024-08-08 Pat Name: Madhu Payne Department: Room: Gender: Male National Secretary: : 1945 Requested By: Damian Geller Order Number: [id number] Lena MD: Breana Kelly M.D. Measurements Intervals [place] Rate: 46 P: 18 SD: 167 QRS: -86 QRSD: 163 T: 16 QT: 459 QTc: 404 Interpretive Statements SINUS BRADYCARDIA RIGHT BUNDLE BRANCH BLOCK [120+ ms QRS DURATION, UPRIGHT V1, 40+ ms S IN I/aVL/V4/V5/V6].LEFT ANTERIOR FASCICULAR BLOCK [QRS AXIS <= -45, QR IN I, RS IN II] MINIMAL VOLTAGE CRITERIA FOR LVH, CONSIDER NORMAL VARIANT [MEETS CRITERIA IN ONE OF: R(aVL), S(V1), R(V5), R(V5/V6)+S(V1)] possible old inferior wall NM POSSIBLE ANTERIOR MYOCARDIAL INFARCTION , PROBABLY OLD [30 ms Q WAVE IN V3/V4, OR R < 0.2 mV IN V4].Compared to ECG 08/01/2024 11:04:27 Left anterior fascicular block now present Sinus rhythm no longer present.Right-axis deviation no longer present Myocardial infarct finding still present Electronically Signed On 08-08-2024 19:32:13 DISPATCHER MAINTENANCE SERVICE by Breana Kelly M.D. [email or web address]
[2024-08-08 10:55] LABS: Influenza A NEGATIVE (Negative); Influenza B NEGATIVE (Negative); Respiratory Syncytial Virus Ce NEGATIVE (Negative)
[2024-08-08 11:03] LABS: Covid PCR Positive (Negative)
[2024-08-08 11:11] VITALS: BP 121/89; PULSE 53; O2SAT 100
[2024-08-08 11:12] VITALS: BP 121/89; PULSE 53; O2SAT 100
== END 2024-08-08 11:13 | disposition home or self-care (01) ==
PROVIDERS: Emergency Provider Family Medicine
DX: U07.1 COVID-19 (principal); Z11.52 Encounter for screening for COVID-19
CPT/HCPCS: 0241U; 71045; 80053; 85025; 93005; 99285